=== PATIENT | female | born 1945 | race Two or more races ===

== ENCOUNTER 2024-12-12 01:40 | Emergency (ER) | payer OTHER ==
[~2024-12-12] VITALS: Ht 162.6 cm; Wt 59.0 kg
[2024-12-12] MEDS ORDERED: 0.9 % SODIUM CHLORIDE 500 ML IV STA (02:28)
[2024-12-12] MEDS ORDERED: FAMOTIDINE/PF 20 MG/2 ML VIAL ONE (02:28)
[2024-12-12] MEDS ORDERED: ONDANSETRON HCL 2 MG/ML VIAL ONE (02:28)
[2024-12-12] MEDS ORDERED: FAMOtidine 10 MG/ML (4ML VIAL) IV PUSH STA (02:29)
[2024-12-12] MEDS ORDERED: ONDANSETRON HCL 2 MG/ML VIAL IV STA (02:29)
[2024-12-12 02:57] LABS: BASO % 0.7 % (0.1-1.2); EOS # 0.11 (0.04-0.54); EOS % 1.6 % (0.7-7.0); HEMATOCRIT 30.4 % (34.1-44.9); HEMOGLOBIN 10.1 g/dL (11.2-15.7); LYMPH # 1.01 (1.18-3.74); MEAN CORPUSCULAR HEMOGLOBIN 27.9 pg (25.6-32.2); MONO # 0.67 (0.24-0.82); MONO % 9.9 % (4.7-12.5); NEUT # 4.87 (1.56-6.13); NEUT % 72.4 % (34.0-71.1); PLATELET COUNT 208 K/uL (163-369); RED BLOOD COUNT 3.62 M/uL (3.93-5.22); RED CELL DISTRIBUTION WIDTH 14.4 % (11.6-14.4)
[2024-12-12 03:20] LABS: CALCIUM 8.8 mg/dL (8.5-10.1); CREATININE SERUM 1.02 mg/dL (0.55-1.02); GFR 52.28; POTASSIUM 3.8 mEq/L (3.5-5.1)
[2024-12-12 04:05] LABS: COVID-19 AG POSITIVE (NEGATIVE); INFLUENZA A AG NEGATIVE (NEGATIVE); INFLUENZA B AG NEGATIVE (NEGATIVE)
== END 2024-12-12 04:46 | disposition home or self-care (01) ==
LOC: ER 01:40
DX: U07.1 COVID-19 (principal)
CPT/HCPCS: 36415; 96365; 96366; 99282; J2405; J3490; J7042